=== PATIENT | male | born 1960 | race Caucasian/White ===

== ENCOUNTER 2023-09-11 20:21 | Emergency (ER) | payer OTHER, SELFPAY ==
[2023-09-11 20:21] VITALS: BMI 30.9
[2023-09-11 20:23] VITALS: BP 144/98; BP 166/121
[2023-09-11 20:37] VITALS: BP 144/98
[2023-09-11 20:47] LABS: % Basophils 0.7 % (0-2); % Eosinophils 8.8 % (0-6); % Immature Granulocytes 0.3 % (0-0.5); % Lymphocytes 22.9 % (20.5-51.1); % Monocytes 14.7 % (1.7-9.3); % Neutrophils 52.6 % (42.2-75.2); Absolute Eosinophils 0.5 10^3/uL (0-0.7); Absolute Lymphocytes 1.4 10^3/uL (1.2-3.4); Absolute Monocytes 0.9 10^3/uL (0.1-0.6); Absolute Neutrophils 3.1 10^3/uL (1.4-6.5); Hematocrit 47.5 % (39.0-52.0); Hemoglobin 16.6 g/dL (13.0-18.0); Mean Corp Hgb Conc. 34.9 g/dL (33.0-37.0); Mean Corpuscular Hgb 32.5 pg (27.0-31.0); Nucleated Red Blood Cells % 0 % (-); Platelet Count 208 10^3/uL (130-400); Red Blood Cell Count 5.11 10^6/uL (4.70-6.10); Red Cell Dist. Width 13.6 % (11.5-14.5); White Blood Cell Count 5.9 10^3/uL (4.8-10.8)
[2023-09-11 21:00] VITALS: BP 148/85
[2023-09-11 21:00] LABS: ALT (SGPT) 25 U/L (0-50); AST (SGOT) 33 U/L (17-59); Albumin 4.8 g/dl (3.5-5.0); Alkaline Phosphatase 104 U/L (38-126); Blood Urea Nitrogen 26 mg/dl (9-20); Calcium 11.3 mg/dl (8.4-10.2); Carbon Dioxide 28 mmol/L (22-30); Chloride 101 mmol/L (98-107); Estimated Creatinine Clearance 76 ml/min; Glucose 96 mg/dl (70-99); Potassium 4.8 mmol/L (3.5-5.1); Sodium 138 mmol/L (135-145); Total Bilirubin 1.3 mg/dl (0.2-1.3); Total Protein 8.2 g/dl (6.3-8.2); eGFR > 60.00
[2023-09-11 21:10] LABS: Troponin I < 0.012 ng/ml
[2023-09-11 22:00] VITALS: BP 142/84
[2023-09-11] MEDS: LOPRESSOR 5 MG IV (22:30)
[2023-09-11] MEDS: TOPROL XL 25 MG PO (22:30)
[2023-09-11 23:00] VITALS: BP 117/84
--- NOTE | 2023-09-11 23:35 | ED.GENMED ---
History of Present Illness
General
Chief Complaint: Heart Rate Problem
Time Seen by Provider: 09/11/23 20:55
Travel History
Have you had any contact with someone who has COVID-19?: No
Do you have any symptoms of coronavirus? Fever > 100 degrees, chills, cough, shortness of breath, sore throat, loss of taste or smell, muscle aches, or headache?: No
History of Present Illness
History of Present Illness:
63-year-old male with a history of hypertension presents to the emergency department for evaluation of new onset atrial fibrillation identified at urgent care. He states that early in the morning today he awoke with heart palpitations and chest
tightness. The symptoms waxed and waned throughout the course of the day before he decided to go to urgent care. Currently asymptomatic while sitting in the exam bed. Denies any recent fevers or chills. Has no history of cardiac disease to his
knowledge. Denies any exertional chest pain or shortness of breath
Review of Systems
Review of Systems
Allergies reviewed?: Yes
All Other Systems: ROS reviewed and negative except as documented in HPI and ROS
Phy Exam
Physical Exam
Physical Exam:
GEN: Well appearing, NAD, WDWN
HEENT: Oral mucosa moist, no scleral icterus
Cardiac: Tachycardic and irregular, no murmurs
Lung: No respiratory distress, no tachypnea, lungs clear to auscultation bilaterally
MSK: No gross deformity or injuries
Skin: Good color, no pallor or jaundice, no rashes
Neuro: AO x3, moves all extremities freely
Psych: Calm, cooperative
Course
Orders/Labs/Results
Orders:
Orders
09/11/23 20:23
Electrocardiogram (*1) Urgent
Reason for Study: QTc Monitoring
EKG- Treatment ONCE
09/11/23 20:38
Complete Blood Count/With Diff Urgent
Comprehensive Metabolic Panel Urgent
Troponin I Urgent
09/11/23 21:49
Metoprolol Xl [Toprol Xl] 25 mg PO NOW STA
Metoprolol [Lopressor] 5 mg IV NOW STA
09/11/23 23:19
CR Chest - 2 Views Urgent
Comment:
Reason For Exam: chest discomfort
Abnormal Lab Results
09/11/23
20:38
MCH 32.5 H pg
(27.0-31.0)
Absolute Monos (auto) 0.9 H 10^3/uL
(0.1-0.6)
Monocytes % 14.7 H %
(1.7-9.3)
Eosinophils % 8.8 H %
(0-6)
BUN 26 H mg/dl
(9-20)
Calcium 11.3 H mg/dl
(8.4-10.2)
09/11/23 20:38
09/11/23 20:38
Vital Signs
Initial and Last Documented VS:
Initial Vital Signs
Pulse Resp
116 18
09/11/23 20:22 09/11/23 20:22
Last Documented Vital Signs
Temp Pulse Resp BP Pulse Ox
99.4 F 101 17 136/94 90
09/11/23 20:23 09/11/23 23:41 09/11/23 23:41 09/11/23 23:41 09/11/23 23:41
MDM/Problems Addressed
MDM/Problems Addressed:
63-year-old male presents with new onset atrial fibrillation. Certainly this may have begun in the middle of the night when the patient awoke with symptoms however given that he is relatively rate controlled and asymptomatic in the emergency
department currently, cannot validate that he has not been experiencing paroxysms of atrial fibrillation in the past. Overall he is quite stable thus I do not feel it is appropriate to offer cardioversion to this patient. His labs are reassuring.
He was given IV beta-irene for additional rate control and loaded with long-acting beta-irene. Tolerated these medications in the emergency department without difficulties. He will be initiated on anticoagulants and advised to follow-up as an
outpatient with cardiology
Comment
Comment:
EKG independently interpreted by me shows rate controlled atrial fibrillation at a rate of [address] changes concerning for ischemia
*Critical Care Note
Total Time (30-74mins, 75-104mins- exclusive of procedures): Not Applicable
ED Attending Note
-
Portions of this chart may have been created with voice recognition software.� Occasional wrong word or��sound alike� substitutions may have occurred due to the inherent limitations of voice recognition software.
Discharge Plan
Departure
Patient Disposition: Home (Routine Discharge)
Date of Disposition: 09/11/23
Time of Disposition: 23:35
Patient with high blood pressure during this ER visit?: No
Discharge Problem:
Atrial fibrillation, new onset
Instructions: Atrial Fibrillation (DC)
Prescriptions:
New
metoprolol succinate 25 mg tablet extended release 24 hr
25 mg PO DAILY Qty: 30 0RF
Eliquis 5 mg tablet
5 mg PO BID Qty: 60 0RF
No Action
amlodipine 5 mg tablet
5 mg PO DAILY
aspirin 81 mg Tablet,Delayed Release (Dr/Ec)
81 mg PO DAILY
lisinopril 5 mg tablet
5 mg PO DAILY
Referrals:
Diallo Sims MD [Family Provider] -
Efren Rebollar MD [Active] -
Interventions
Interventions:
*Risk Screen - Suicide Last Done: 09/11/23 20:23
*General Assessment Last Done: 09/11/23 20:23
*Neglect/Abuse Screening Last Done: 09/11/23 20:23
ED- Fall Risk Assessment Last Done: 09/11/23 20:35
*ED COVID-19 Vaccine History Last Done: 09/11/23 23:55
*Nursing Disposition Last Done: 09/11/23 23:55
ED- Cardiac Assessment Last Done: 09/11/23 20:35
ED- Pulmonary Assessment Last Done: 09/11/23 20:35
Discharge Date and Time
Discharge Date/Time: 09/11/23 23:56
Print Language: HEBREW
[2023-09-11 23:41] VITALS: BP 136/94
[2023-09-12 01:22] LABS: TSH Reflex To Free T4 5.71 uIU/ml (0.47-4.68)
[2023-09-12 01:51] LABS: Free T4 1.36 ng/dl (0.78-2.19)
== END 2023-09-11 23:56 | disposition home or self-care (01) ==
LOC: EMR 20:21
PROVIDERS: EMERGENCY PHYSICIAN Emergency Medicine; FAMILY PHYSICIAN Family Medicine
DX: I48.91 Unspecified atrial fibrillation (principal); I10 Essential (primary) hypertension; R00.2 Palpitations; R07.89 Other chest pain
CPT/HCPCS: 99283; 96374; 71046; 80053; 84439; 84443; 84484; 85025; 93005

== ENCOUNTER → 2023-11-06 08:03 | Outpatient (REF) | payer OTHER, SELFPAY | LOC: HWRCS 08:03 | PROVIDERS: ATTENDING PHYSICIAN Internal Medicine Cardiovascular Disease; FAMILY PHYSICIAN Family Medicine | DX: I48.0 Paroxysmal atrial fibrillation (principal) | CPT/HCPCS: 93306 ==

== ENCOUNTER 2024-08-06 08:45 | Day surgery (SDC) | payer OTHER, SELFPAY ==
[2024-07-30 10:01] VITALS: BMI 31.5
[2024-07-30 10:24] LABS: % Basophils 0.9 % (0-2); % Eosinophils 7.3 % (0-6); % Immature Granulocytes 0.5 % (0-0.5); % Lymphocytes 18.8 % (20.5-51.1); % Monocytes 12.8 % (1.7-9.3); % Neutrophils 59.7 % (42.2-75.2); Absolute Eosinophils 0.3 10^3/uL (0-0.7); Absolute Lymphocytes 0.8 10^3/uL (1.2-3.4); Absolute Monocytes 0.6 10^3/uL (0.1-0.6); Absolute Neutrophils 2.6 10^3/uL (1.4-6.5); Hematocrit 45.3 % (39.0-52.0); Hemoglobin 15.7 g/dL (13.0-18.0); Mean Corp Hgb Conc. 34.7 g/dL (33.0-37.0); Mean Corpuscular Hgb 33.1 pg (27.0-31.0); Mean Corpuscular Volume 95.4 fL (80.0-94.0); Mean Platelet Volume 8.8 fL (7.4-10.4); Nucleated Red Blood Cells % 0 % (-); Platelet Count 192 10^3/uL (130-400); Red Blood Cell Count 4.75 10^6/uL (4.70-6.10); Red Cell Dist. Width 14.1 % (11.5-14.5); White Blood Cell Count 4.4 10^3/uL (4.8-10.8)
[2024-07-30 10:38] LABS: INR 1.23
[2024-07-30 11:17] LABS: ALT (SGPT) 31 U/L (0-50); AST (SGOT) 75 U/L (17-59); Albumin 4.6 g/dl (3.5-5.0); Alkaline Phosphatase 96 U/L (38-126); Blood Urea Nitrogen 17 mg/dl (9-20); Calcium 10.1 mg/dl (8.4-10.2); Carbon Dioxide 27 mmol/L (22-30); Chloride 102 mmol/L (98-107); Estimated Creatinine Clearance 70 ml/min; Glucose 100 mg/dl (70-99); Magnesium 2.1 mg/dl (1.6-2.3); Sodium 139 mmol/L (135-145); Total Bilirubin 1.4 mg/dl (0.2-1.3); Total Protein 7.4 g/dl (6.3-8.2); eGFR > 60.00
[2024-08-06] VITALS (11 sets, daily range): BP systolic 111–154; BP diastolic 61–91; BMI 30.1
[2024-08-06] MEDS: TYLENOL 1000 MG PO (09:49)
--- NOTE | 2024-08-06 10:36 | ITS.CL.ABL ---
Administrative Office Manager - Ablation
Ablation
Procedure Report:
Primary Computer Technology Trainer: Beto Fitzgerald MD
Procedure Date: 08/06/2024
Patient History:
Patient is a pleasant 64-year-old male with a past medical history significant for hypertension, mitral valve disease, obstructive sleep apnea, alcohol use, and symptomatic paroxysmal atrial fibrillation.
See H&P for complete details.
Indication:
Symptomatic paroxysmal atrial fibrillation
Arrhythmia Specific History:
Prior Medical Therapies for Rate and Rhythm Control:
[ ] Beta-irene
X Calcium channel-irene
[ ] Amiodarone
[ ] Dronederone
[ ] Sotalol
[ ] Flecainide
[ ] Dofetilide
[ ] Options limited by bradycardia
[ ] Options limited by comorbid renal disease
Prior Procedural Therapies for AF/AFL:
[ ] Cardioversion
[ ] Pulmonary Vein Isolation
[ ] Posterior Wall Isolation
[ ] Additional lines (Specify)
[ ] Surgical Hernández-MAZE or PVI (Specify)
Procedure Performed:
X AF ablation procedure (42396) -- includes LA/CS pacing, trans-septal, 3D mapping, + ICE
[ ] +IV drug (58008)
[ ] +Other Arrhythmia (61465)
[ ] +Other AF Line/ablation (45432)
Risks and expected recovery has been explained in detail. Alternative options have been explored, and in a shared-decision making fashion we have decided that this was the most appropriate procedure.
Method
NPO status confirmed. Grounding pad applied. Defibrillator pads applied. Continuous surface ECG, pulse oximetry, and blood pressure were monitored. Procedure was performed under general anesthesia, with anesthesia services.
Both groins were clipped, prepped with Chloraprep, and draped in sterile fashion. Time out was called. Local anesthesia administered with bupivacaine. The right femoral vein was accessed for catheter placement, using ultrasound guidance (images
saved to record), micro-puncture needle/wire, and modified seldinger technique. 3 sheaths were placed. The following catheters were used:
[ ] Tacticath SE (D/F Curve) ablation catheter
X Viewflex 9Fr ICE catheter
X Inquiry decapolar 6Fr diagnostic catheter
[ ] CRD Hex 6Fr
[ ] Arctic Front Advance Cryoballoon ([ ]28mm[ ]23mm)
[ ] Achieve Advance mapping catheter ([ ]15mm[ ]20mm)
X FlexCath Contour 10 Fr with PulseSelect PFA Catheter
X Advisor HD Grid Mapping Catheter, SE
[ ] Acuson AcuNav 8 Fr ICE catheter
[ ]Other: [ ]
Intracardiac ultrasound (ICE) was carefully advanced into the right atrium to guide sheath placement over a J-wire, catheter placement, guide trans-septal puncture, identify potential complications, identify anatomic structures and ensure proper
contact between ablation catheter and tissue.
Heparin was given prior to trans-septal puncture. Heparin was given to achieve and maintain a target ACT of 300-400 seconds throughout the procedure.
Trans-septal access was performed under ICE guidance. The trans-septal puncture was performed with a SafeSept wire through a Brockenbrough needle assembly through the steerable sheath. The wire was visualized as it entered the LSPV and system
advanced under ICE guidance and fluoroscopy into the LA. The Brockenbrough needle assembly, SafeSept wire and sheath dilator were removed under negative pressure. LA pressure was measured and recorded.
ICE and 3D mapping was performed to identify relevant cardiac structures. A careful 3D map was created to assess for regions of low-voltage and abnormal electrogram signals using HD grid mapping catheter and PulseSelect catheter. Additional mapping
was performed as outlined below.
Prior to ablation, glycopyrrolate was provided. PulseSelect catheter was advanced over J-wire to the ostium of each vein. Pulmonary vein isolation was performed with ostial and antral lesions in a circumferential manner. Contact was visualized via
EAM, ICE, fluoroscopy, and EGM signals. Following completion of ablation lesions, a post-ablation voltage/activation map was performed in sinus rhythm. Entrance and exit block were confirmed for each vein.
Catheter and sheath were removed from the left atrium and post-ablation intracardiac echo evaluation was consistent with pre-ablation with no changes and no pericardial effusion and there is no left atrial thrombus or left ventricle thrombus seen.
Electrophysiology study was performed. Hemostasis was obtained with figure of 8 stitch for each groin and with manual pressure. Protamine was used for reversal.
Estimated Blood Loss
5 mL
Complications
None
Fluoroscopy: 3.1 minutes; 9.81 mGy
Baseline Intervals:
Rhythm: SR
AL: 152 ms
QRS: 102 ms
QT: 446 ms
Post-Procedure Intervals:
AL: 178 ms
QRS: 97 ms
QT: 349 ms
QTc: 361 ms
A-A: 934 ms
R-R: 934 ms
AVWB: 350 ms
AVNERP: 600/300 ms
Recommendations
- Bedrest with straight-leg precautions as ordered
- Anticipate same day discharge if patient meeting clinical metrics
- Resume home medications as indicated
- Ok to resume anticoagulation tonight if patient and groin sites stable
- PPI daily for 30 days
- Plan for follow-up in office as scheduled
Dayday Pal DO, FACC
Clinical Cardiac Pulmonary Fellow
cc: Beto Fitzgerald MD; Diallo Sims MD; Zion Dunne MD
[2024-08-06 11:58] LABS: ACT-LR - POC 308 Seconds (116-155)
[2024-08-06 12:11] LABS: ACT-LR - POC 326 Seconds (116-155)
[2024-08-06 12:35] LABS: ACT-LR - POC 388 Seconds (116-155)
[2024-08-06 13:01] LABS: ACT-LR - POC 171 Seconds (116-155)
[2024-08-06] MEDS: ANESTHETIC LOZENGE 1 LOZENGE PO (13:55)
--- NOTE | 2024-08-06 16:51 | W.PN.UPDATE ---
Update Note
Progress Note Update
64yo WM s/p PVI (same day). He denies cp, sob, peace diet, voiding, R fem site c/d/i no HT, F08 intact, EKG SR. He will resume Eliquis tonight and continue dilitazem. Activity restrictions reviewed. He will f/u DCA in 2 mo. He is for d/c home after
6pm if groin stable.
[2024-08-07 15:45] LABS: ACT-LR - POC > 397 Seconds (116-155)
== END 2024-08-06 17:50 | disposition home or self-care (01) ==
LOC: CATH 08:45
PROVIDERS: ATTENDING PHYSICIAN Internal Medicine Cardiovascular Disease; FAMILY PHYSICIAN Family Medicine; OTHER PHYSICIAN Internal Medicine Cardiovascular Disease
DX: I48.0 Paroxysmal atrial fibrillation (principal); G47.33 Obstructive sleep apnea (adult) (pediatric); I10 Essential (primary) hypertension; Z79.01 Long term (current) use of anticoagulants; Z79.899 Other long term (current) drug therapy
CPT/HCPCS: C1732; C1894; C1769; C1759; C1733; C1766; 36415; 75572; 80053; 83735; 85025; 85347; 85610; 86850; 86900; 86901; 93005; 93656; Q9967